=== PATIENT | male | born 1960 | race African-American/Black ===

== ENCOUNTER 2016-08-02 12:47 | Emergency (ER) | payer OTHER | END 2016-08-02 13:15 | disposition home or self-care (01) | LOC: CFTX 12:47 → CED 12:47 → CFTX 13:13 | DX: H66.92 Otitis media, unspecified, left ear (principal); F17.210 Nicotine dependence, cigarettes, uncomplicated; I10 Essential (primary) hypertension; J45.909 Unspecified asthma, uncomplicated; F32.9 Major depressive disorder, single episode, unspecified | CPT/HCPCS: 99282 ==